=== PATIENT | female | born 1970 | race Caucasian/White ===

== ENCOUNTER 2017-01-04 10:16 | Emergency (ER) | payer OTHER ==
[2017-01-04 10:23] VITALS: BP 137/80; RESP 16; TEMP 98
[2017-01-04] MEDS ORDERED: IPRATROPIUM-ALBUTEROL 3 ML NEB INHALATION STA (10:39)
[2017-01-04] MEDS ORDERED: predniSONE 50 MG TAB PO STA (10:39)
--- NOTE | 2017-01-04 10:41 | ED ---
General Adult HPI - General Chief complaint: Shortness of Breath Stated complaint: asthma Time Seen by Provider: 01/04/17 10:20 Source: patient, RN notes reviewed Mode of arrival: ambulatory Limitations: no limitations - History of Present Illness Initial comments: This is a 46-year-old female who presents emergency Department with a past medical history significant for asthma. Patient states she woke up this morning with wheezing. Patient states she used her albuterol inhaler 2 and it really didn't help that much. Patient states she came to the emergency department because she wanted to catch the attack early so that wouldn't get worse. Patient denies any chest pain or palpitations. Patient denies any fever chills or cough. Patient denies any abdominal pain. Patient denies any upper respiratory like symptoms. Eyes any calf pain or leg swelling. - Related Data Previous Rx's Medication Instructions Recorded predniSONE 40 mg PO DAILY #8 tab 01/04/17 Allergies Allergy/AdvReac Type Severity Reaction Status Date / Time venom-honey bee Allergy Unknown Verified 01/04/17 10:31 [bee venom (honey bee)] codeine AdvReac Nausea & Verified 01/04/17 10:31 Vomiting & Diarrhea Review of Systems ROS Statement: Those systems with pertinent positive or pertinent negative responses have been documented in the HPI. ROS Other: All systems not noted in ROS Statement are negative. Past Medical History Past Medical History: Asthma History of Any Multi-Drug Resistant Organisms: None Reported Past Surgical History: Section, Hernia Repair Past Psychological History: No Psychological Hx Reported Smoking Status: Current every day smoker Past Alcohol Use History: None Reported Past Drug Use History: None Reported General Exam - General Exam Comments Initial Comments: GENERAL: Patient is well-developed and well-nourished. Patient is nontoxic and well- hydrated and is in mild distress. ENT: Neck is soft and supple. No significant lymphadenopathy is noted. Oropharynx is clear. Moist mucous membranes. Neck has full range of motion without eliciting any pain. EYES: The sclera were anicteric and conjunctiva were pink and moist. Extraocular movements were intact and pupils were equal round and reactive to light. Eyelids were unremarkable. PULMONARY: Slight expiratory wheeze CARDIOVASCULAR: There is a regular rate and rhythm without any murmurs gallops or rubs. ABDOMEN: Soft and nontender with normal bowel sounds. No palpable organomegaly was noted. There is no palpable pulsatile mass. SKIN: Skin is clear with no lesions or rashes and otherwise unremarkable. NEUROLOGIC: Patient is alert and oriented x3. Cranial nerves II through XII are grossly intact. Motor and sensory are also intact. Normal speech, volume and content. Symmetrical smile. MUSCULOSKELETAL: Normal extremities with adequate strength and full range of motion. No lower extremity swelling or edema. No calf tenderness. LYMPHATICS: No significant lymphadenopathy is noted PSYCHIATRIC: Normal psychiatric evaluation. Limitations: no limitations Course Vital Signs 01/04/17 01/04/17 01/04/17 10:21 10:56 11:03 Temperature 98.0 F Pulse Rate 80 88 88 Respiratory 16 Rate Blood Pressure 137/80 O2 Sat by Pulse 99 Oximetry Medical Decision Making - Medical Decision Making Patient received a breathing treatment one taken the room and I reevaluated the patient she sounded clearer and she felt a little better and she thought she could go home and follow-up with her primary as needed. Patient does states she 's been a try to quit smoking. Disposition Clinical Impression: Exacerbation of asthma Disposition: HOME SELF-CARE Condition: Good Instructions: Asthma (ED) Prescriptions: predniSONE 40 mg PO DAILY #8 tab Referrals: None,Stated [Primary Care Provider] - 1-2 days Time of Disposition: 11:21
[2017-01-04 11:35] VITALS: PULSE 82
== END 2017-01-04 11:35 | disposition home or self-care (01) ==
LOC: EC 10:16
DX: J45.901 Unspecified asthma with (acute) exacerbation (principal); F17.200 Nicotine dependence, unspecified, uncomplicated; Z91.030 Bee allergy status; Z88.5 Allergy status to narcotic agent
CPT/HCPCS: 99284; 94640; J7512

== ENCOUNTER 2017-04-09 13:51 | Emergency (ER) | payer OTHER ==
[2017-04-09 14:03] VITALS: BP 132/64; PULSE 91; RESP 20; TEMP 96.9
--- NOTE | 2017-04-09 14:23 | ED ---
General Adult HPI - General Chief complaint: Fall Stated complaint: fall/arm & shoulder pain Time Seen by Provider: 04/09/17 14:11 Source: patient, RN notes reviewed Mode of arrival: ambulatory Limitations: no limitations - History of Present Illness Initial comments: Patient 46-year-old female who presents emergency room today with a chief complaint of FALL on the ice yesterday when she was trying to get into the bus. She states that she was standing on the curb and when she went to step up slipped falling down hitting her knees bilaterally also noticed that she's had some pain to the right shoulder right elbow, right wrist today. Patient does admit that she's left-handed. She does admit that these pains are worse with certain movements. She states her head injury or loss conscious. Patient denies any other complaints or symptoms currently. Patient denies any recent fever, chills, shortness of breath, chest pain, back pain, abdominal pain, nausea or vomiting, numbness or tingling, headaches or visual changes, or any other complaints. - Related Data Home Medications Medication Instructions Recorded Confirmed No Known Home Medications [No 04/09/17 04/09/17 Known Home Medications] Allergies Allergy/AdvReac Type Severity Reaction Status Date / Time venom-honey bee Allergy Unknown Verified 04/09/17 14:03 [bee venom (honey bee)] codeine AdvReac Nausea & Verified 04/09/17 14:03 Vomiting & Diarrhea Review of Systems ROS Statement: Those systems with pertinent positive or pertinent negative responses have been documented in the HPI. ROS Other: All systems not noted in ROS Statement are negative. Past Medical History Past Medical History: Asthma History of Any Multi-Drug Resistant Organisms: None Reported Past Surgical History: Section, Hernia Repair Past Psychological History: No Psychological Hx Reported Smoking Status: Current every day smoker Past Alcohol Use History: None Reported Past Drug Use History: None Reported General Exam - General Exam Comments Initial Comments: General: The patient is awake and alert, in no distress, and does not appear acutely ill. Neck: The neck is supple, there is no tenderness or JVD. Cardiovascular: There is a regular rate and rhythm. No murmur, rub or gallop is appreciated. Respiratory: Lungs are clear to auscultation, respirations are non-labored, breath sounds are equal. No wheezes, stridor, rales, or rhonchi. Musculoskeletal: Patient does have normal appearance of her shoulder, right elbow, right wrist no swelling or deformity. Shows full range motional areas. Mild tenderness to the posterior aspect of the right elbow. Mild tenderness to the distal ulna. Mild tenderness to the superior anterior aspect of the right shoulder. Sensations are intact pulses equal bilateral 2+. strength is 5/5 in all areas. Neurological: A&O x 3. CN II-XII intact, There are no obvious motor or sensory deficits. Coordination appears grossly intact. Speech is normal. Skin: Skin is warm and dry and no rashes or lesions are noted. Psychiatric: Normal mood and affect. Limitations: no limitations Course Vital Signs 04/09/17 14:01 Temperature 96.9 F L Pulse Rate 91 Respiratory 20 Rate Blood Pressure 132/64 O2 Sat by Pulse 100 Oximetry Medical Decision Making - Medical Decision Making Patient's x-rays of the right shoulder, right wrist, right elbow are negative for any acute fracture dislocation. Results were discussed with the patient. Patient advised used Tylenol ibuprofen for pain. Patient advised follow-up in 7 -10 days if symptoms persist. Patient requests work note. We will give patient work note for today. Disposition Clinical Impression: Fall, Shoulder strain, Wrist sprain, Strain of elbow Disposition: HOME SELF-CARE Condition: Good Instructions: Muscle Strain (ED) Additional Instructions: Please use medication as discussed. Please follow-up with orthopedic/family doctor in the next 7-10 days of symptoms have not improved. Please return to emergency room if the symptoms increase or worsen or for any other concerns. Referrals: None,Stated [Primary Care Provider] - 1-2 days Demetrio Grace MD [STAFF PHYSICIAN] - 1-2 days Lamberto Farmer DO [Doctor of Osteopathic Medicine] - 1-2 days Time of Disposition: 15:06
--- NOTE | 2017-04-09 15:00 | XR ---
EXAMINATION TYPE: XR shoulder complete RT DATE OF EXAM: 04/09/2017 CLINICAL HISTORY: Pain from fall injury yesterday. TECHNIQUE: Three views of the right shoulder are obtained. COMPARISON: None. FINDINGS: There is no acute fracture/dislocation evident in the right shoulder. The acromioclavicul ar and glenohumeral joint spaces appear within normal limits. The visualized ribs are intact and unr emarkable. IMPRESSION: There is no acute fracture or dislocation in the right shoulder.
--- NOTE | 2017-04-09 15:01 | XR ---
EXAMINATION TYPE: XR elbow limited RT DATE OF EXAM: 04/09/2017 CLINICAL HISTORY: Pain from fall injury yesterday. TECHNIQUE: Frontal and lateral images of the right elbow are obtained. COMPARISON: None FINDINGS: There is no acute fracture/dislocation evident in the right elbow. No abnormal fat pad si gns are seen. The overlying soft tissue appears unremarkable. IMPRESSION: There is no acute fracture or dislocation in the right elbow.
--- NOTE | 2017-04-09 15:02 | XR ---
EXAMINATION TYPE: XR wrist complete RT DATE OF EXAM: 04/09/2017 CLINICAL HISTORY: Pain from fall injury. TECHNIQUE: Frontal, lateral , scaphoid, and oblique images of the right wrist are obtained. COMPARISON: None FINDINGS: There is no acute fracture/dislocation evident in the right wrist. Subchondral cystic khan ge distal radii aspect of scaphoid and adjacent radial base of the trapezium is felt present. The ov erlying soft tissue appears unremarkable. IMPRESSION: There is no acute fracture or dislocation in the right wrist.
== END 2017-04-09 15:28 | disposition home or self-care (01) ==
LOC: EC 13:51
DX: S63.501A Unspecified sprain of right wrist, initial encounter (principal); S46.911A Strain of unspecified muscle, fascia and tendon at shoulder and upper arm level, right arm, initial encounter; F17.200 Nicotine dependence, unspecified, uncomplicated; Z91.030 Bee allergy status; Z88.5 Allergy status to narcotic agent; W00.9XXA Unspecified fall due to ice and snow, initial encounter; Y93.89 Activity, other specified
CPT/HCPCS: 99283

== ENCOUNTER 2018-08-08 12:02 | Observation (INO) | payer OTHER ==
[2018-08-08] MEDS ORDERED: SODIUM CHLORIDE 0.9% 1,000 ML IV STA (12:34)
[2018-08-08] MEDS ORDERED: ONDANSETRON 4 MG/2 ML VIAL IVP STA (12:34)
[2018-08-08] MEDS ORDERED: FAMOTIDINE 20 MG/2 ML VIAL IV STA (12:35)
[2018-08-08] MEDS ORDERED: MAG HYDROX/AL HYDROX/SIMETH 30 ML, HYOSCYAMINE ELIXIR 10 ML, CIMETIDINE HCL 300 MG, LID... PO STA ×4 (12:35)
[2018-08-08 13:05] LABS: Basophils % (A) 0 %; Eosinophils # (A) 0.2 k/uL (0-0.7); Eosinophils % (A) 2 %; HCT 41.1 % (34.0-46.0); HGB 13.3 gm/dL (11.4-16.0); Lymphocytes # (A) 1.4 k/uL (1.0-4.8); Lymphocytes % (A) 20 %; MCH 26.6 pg (25.0-35.0); MCHC 32.3 g/dL (31.0-37.0); MCV 82.2 fL (80.0-100.0); Mean Platelet Volume 10.3; Monocytes # (A) 0.5 k/uL (0-1.0); Monocytes % (A) 7 %; Neutrophils % (A) 69 %; Platelet Count 206 k/uL (150-450); WBC 7.2 k/uL (3.8-10.6)
[2018-08-08 13:14] LABS: ALT 64 U/L (9-52); AST 78 U/L (14-36); African American GFR (CKD) >90 (>60 ml/min/1.73 sqM); Albumin 4.2 g/dL (3.5-5.0); Alkaline Phosphatase 92 U/L (38-126); Anion Gap 8 mmol/L; Blood Urea Nitrogen 7 mg/dL (7-17); Calcium 9.4 mg/dL (8.4-10.2); Carbon Dioxide 24 mmol/L (22-30); Chloride 108 mmol/L (98-107); Glucose 100 mg/dL (74-99); Sodium 140 mmol/L (137-145); Total Bilirubin 0.6 mg/dL (0.2-1.3); Total Protein 7.6 g/dL (6.3-8.2)
[2018-08-08 13:28] LABS: Appearance,Urine Cloudy (Clear); Bilirubin,Urine Negative (Negative); Blood,Urine Moderate (Negative); Color,Urine Yellow; Glucose,Urine (UA) Negative (Negative); Ketones,Urine Negative (Negative); Leukocyte Esterase,Urine Negative (Negative); Mucus,Urine Few /hpf; Nitrite,Urine Negative (Negative); PH, Urine 5.5 (5.0-8.0); Protein,Urine Trace (Negative); RBC,Urine 2 /hpf (0-5); Specific Gravity,Urine 1.026 (1.001-1.035); Squamous Epithelial Cell,Urine 5 /hpf (0-4); Urobilinogen,Urine <2.0 mg/dL (<2.0); WBC,Urine 4 /hpf (0-5)
--- NOTE | 2018-08-08 13:42 | US ---
EXAMINATION TYPE: US abdomen limited DATE OF EXAM: 08/08/2018 COMPARISON: NONE CLINICAL HISTORY: Pain. Pain, Nausea EXAM MEASUREMENTS: Liver Length: 15.9 cm Gallbladder Wall: 0.7 cm CBD: 0.5 cm Right Kidney: 11.0 x 4.0 x 4.5 cm Pancreas: 0.21 mm duct visualized, tail obscured by overlying bowel gas Liver: Visualized portions appeared wnl Gallbladder: Non-mobile stone within neck, tumefactive sludge and stones near fundus Evidence for sonographic Lynch's sign: Yes CBD: wnl Right Kidney: wnl, lower pole gassed out IMPRESSION: Large nonmobile gallstone is seen within the gallbladder neck in addition to tumefactive sludge, positive sonographic Lynch sign and gallbladder wall thickening however the common bile duct is not dilated at this time. Sonographic findings are equivocal for acute cholecystitis given the ab ove findings. Surgical consultation and correlation with laboratory values is recommended.
--- NOTE | 2018-08-08 13:45 | ED ---
Abdominal Pain HPI - General Source: patient, RN notes reviewed Mode of arrival: ambulatory Limitations: no limitations <Lamberto Whitney - Last Filed: 08/08/18 15:27> <Roosevelt Hung - Last Filed: 08/08/18 15:31> - General Chief Complaint: Abdominal Pain Stated Complaint: ABDOMINAL PAIN Time Seen by Provider: 08/08/18 12:22 - History of Present Illness Initial Comments: This a 47-year-old female presents emergency Department with chief complaint of abdominal pain. Patient states started last night worsened after taking some Motrin. Patient states it's in her epigastric region nonradiating. Patient has no vomiting no diarrhea no constipation. She has no dysuria no hematuria. Patient states that nothing really makes the pain feel better. Patient denies any fevers or chills no chest pain or shortness of breath. Patient denies any melena or hematochezia. Patient states that she's had prior section and hernia repair (Lamberto Whitney) - Related Data Home Medications Medication Instructions Recorded Confirmed No Known Home Medications 04/09/17 04/09/17 Allergies Allergy/AdvReac Type Severity Reaction Status Date / Time venom-honey bee Allergy Unknown Verified 08/08/18 12:20 [bee venom (honey bee)] codeine AdvReac Nausea & Verified 08/08/18 12:20 Vomiting & Diarrhea Review of Systems ROS Other: All systems not noted in ROS Statement are negative. <Lamberto Whitney - Last Filed: 08/08/18 15:27> ROS Other: All systems not noted in ROS Statement are negative. <Roosevelt Hung - Last Filed: 08/08/18 15:31> ROS Statement: Those systems with pertinent positive or pertinent negative responses have been documented in the HPI. Past Medical History Past Medical History: Asthma History of Any Multi-Drug Resistant Organisms: None Reported Past Surgical History: Section, Hernia Repair Past Psychological History: No Psychological Hx Reported Smoking Status: Current every day smoker Past Alcohol Use History: None Reported Past Drug Use History: None Reported <Lamberto Whitney - Last Filed: 08/08/18 15:27> General Exam Limitations: no limitations General appearance: alert, in no apparent distress Head exam: Present: atraumatic, normocephalic, normal inspection Eye exam: Present: normal appearance, PERRL, EOMI. Absent: scleral icterus, conjunctival injection, periorbital swelling Respiratory exam: Present: normal lung sounds bilaterally. Absent: respiratory distress, wheezes, rales, rhonchi, stridor Cardiovascular Exam: Present: regular rate, normal rhythm, normal heart sounds. Absent: systolic murmur, diastolic murmur, rubs, gallop, clicks GI/Abdominal exam: Present: soft, tenderness (Mild to moderate epigastric), normal bowel sounds. Absent: distended, guarding, rebound, rigid Back exam: Absent: CVA tenderness (R), CVA tenderness (L) Neurological exam: Present: alert, oriented X3, CN II-XII intact Skin exam: Present: warm, dry, intact, normal color. Absent: rash <Lamberto Whitney - Last Filed: 08/08/18 15:27> Course <Roosevelt Hung - Last Filed: 08/08/18 15:31> Vital Signs 08/08/18 08/08/18 08/08/18 12:18 13:51 14:23 Temperature 98.6 F Pulse Rate 101 H 74 88 Respiratory 20 18 18 Rate Blood Pressure 144/93 118/73 133/66 O2 Sat by Pulse 97 100 100 Oximetry - Reevaluation(s) Reevaluation #2: 08/08/18 15:30 PA supervision: I proceeded [id number] evaluation the patient right upper quadrant pain since yesterday. She does demonstrate a Lynch sign on evaluation. Ultrasound shows evidence of an impacted stone in the neck of the gallbladder. She does have) Lynch sign with thickened gallbladder wall. Common bile duct is appear to be normal I did discuss case with Dr. Sow patient will be admitted for inpatient treatment. I do agree with the assessment and plan (Roosevelt Hung) Medical Decision Making - Lab Data Result diagrams: 08/08/18 12:56 08/08/18 12:56 <Lamberto Whitney - Last Filed: 08/08/18 15:27> - Lab Data Result diagrams: 08/08/18 12:56 08/08/18 12:56 <Roosevelt Hung - Last Filed: 08/08/18 15:31> - Medical Decision Making 47-year-old female presented for abdominal pain. Patient's found to have multiple gallstone, gallbladder wall thickening concern for acute cholecystitis. Patient will be admitted for pain control, possible surgery. (Lamberto Whitney) - Lab Data Lab Results 08/08/18 08/08/18 08/08/18 Range/Units 12:56 12:56 12:56 WBC 7.2 (3.8-10.6) k/uL RBC 5.00 (3.80-5.40) m/uL Hgb 13.3 (11.4-16.0) gm/dL Hct 41.1 (34.0-46.0) % MCV 82.2 (80.0-100.0) fL MCH 26.6 (25.0-35.0) pg MCHC 32.3 (31.0-37.0) g/dL RDW 14.0 (11.5-15.5) % Plt Count 206 (150-450) k/uL Neutrophils % 69 % Lymphocytes % 20 % Monocytes % 7 % Eosinophils % 2 % Basophils % 0 % Neutrophils # 5.0 (1.3-7.7) k/uL Lymphocytes # 1.4 (1.0-4.8) k/uL Monocytes # 0.5 (0-1.0) k/uL Eosinophils # 0.2 (0-0.7) k/uL Basophils # 0.0 (0-0.2) k/uL Sodium 140 (137-145) mmol/L Potassium 4.0 (3.5-5.1) mmol/L Chloride 108 H (98-107) mmol/L Carbon Dioxide 24 (22-30) mmol/L Anion Gap 8 mmol/L BUN 7 (7-17) mg/dL Creatinine 0.63 (0.52-1.04) mg/dL Est GFR (CKD-EPI)AfAm >90 (>60 ml/min/1.73 sqM) Est GFR (CKD-EPI)NonAf >90 (>60 ml/min/1.73 sqM) Glucose 100 H (74-99) mg/dL Calcium 9.4 (8.4-10.2) mg/dL Total Bilirubin 0.6 (0.2-1.3) mg/dL AST 78 H (14-36) U/L ALT 64 H (9-52) U/L Alkaline Phosphatase 92 (38-126) U/L Total Protein 7.6 (6.3-8.2) g/dL Albumin 4.2 (3.5-5.0) g/dL Lipase 105 (23-300) U/L Urine Color Yellow Urine Appearance Cloudy H (Clear) Urine pH 5.5 (5.0-8.0) Ur Specific [place] 1.026 (1.001-1.035) Urine Protein Trace H (Negative) Urine Glucose (UA) Negative (Negative) Urine Ketones Negative (Negative) Urine Blood Moderate H (Negative) Urine Nitrite Negative (Negative) Urine Bilirubin Negative (Negative) Urine Urobilinogen <2.0 (<2.0) mg/dL Ur Leukocyte Esterase Negative (Negative) Urine RBC 2 (0-5) /hpf Urine WBC 4 (0-5) /hpf Ur Squamous Epith Cells 5 H (0-4) /hpf Urine Mucus Few H (None) /hpf Urine HCG, Qual (Not Detectd) 08/08/18 Range/Units 12:56 WBC (3.8-10.6) k/uL RBC (3.80-5.40) m/uL Hgb (11.4-16.0) gm/dL Hct (34.0-46.0) % MCV (80.0-100.0) fL MCH (25.0-35.0) pg MCHC (31.0-37.0) g/dL RDW (11.5-15.5) % Plt Count (150-450) k/uL Neutrophils % % Lymphocytes % % Monocytes % % Eosinophils % % Basophils % % Neutrophils # (1.3-7.7) k/uL Lymphocytes # (1.0-4.8) k/uL Monocytes # (0-1.0) k/uL Eosinophils # (0-0.7) k/uL Basophils # (0-0.2) k/uL Sodium (137-145) mmol/L Potassium (3.5-5.1) mmol/L Chloride (98-107) mmol/L Carbon Dioxide (22-30) mmol/L Anion Gap mmol/L BUN (7-17) mg/dL Creatinine (0.52-1.04) mg/dL Est GFR (CKD-EPI)AfAm (>60 ml/min/1.73 sqM) Est GFR (CKD-EPI)NonAf (>60 ml/min/1.73 sqM) Glucose (74-99) mg/dL Calcium (8.4-10.2) mg/dL Total Bilirubin (0.2-1.3) mg/dL AST (14-36) U/L ALT (9-52) U/L Alkaline Phosphatase (38-126) U/L Total Protein (6.3-8.2) g/dL Albumin (3.5-5.0) g/dL Lipase (23-300) U/L Urine Color Urine Appearance (Clear) Urine pH (5.0-8.0) Ur Specific [place] (1.001-1.035) Urine Protein (Negative) Urine Glucose (UA) (Negative) Urine Ketones (Negative) Urine Blood (Negative) Urine Nitrite (Negative) Urine Bilirubin (Negative) Urine Urobilinogen (<2.0) mg/dL Ur Leukocyte Esterase (Negative) Urine RBC (0-5) /hpf Urine WBC (0-5) /hpf Ur Squamous Epith Cells (0-4) /hpf Urine Mucus (None) /hpf Urine HCG, Qual Not Detected (Not Detectd) Disposition <Lamberto Whitney - Last Filed: 08/08/18 15:27> <Roosevelt Hung - Last Filed: 08/08/18 15:31> Clinical Impression: Cholelithiasis, Acute cholecystitis Disposition: ADMITTED IP TO THIS [facility] Condition: Fair Referrals: None,Stated [Primary Care Provider] - 1-2 days
[2018-08-08] MEDS ORDERED: HYDROmorphone 0.5 MG/0.5 ML SYRINGE IVP STA (14:10)
[2018-08-08] MEDS ORDERED: ONDANSETRON 4 MG/2 ML VIAL IVP PRN (15:11)
[2018-08-08] MEDS ORDERED: HYDROmorphone 1 MG/ML 1 ML SYRINGE IVP PRN (15:11)
[2018-08-08] MEDS ORDERED: PIPERACILLIN-TAZOBACTAM 3.375 GM in SODIUM CHLORIDE 0.9% 100 ML IVPB STA (15:27)
[2018-08-08] MEDS: SODIUM CHLORIDE 0.9% 1,000 ML IV SCH (15:37)
[2018-08-08] MEDS: HYDROmorphone 0.5 MG/0.5 ML SYRINGE IVP PRN (15:38)
[2018-08-08 16:32] VITALS: BMI 43.8
[2018-08-08] MEDS ORDERED: METOCLOPRAMIDE 5 MG/ML 2 ML VIAL IVP STA (17:43)
[2018-08-08] MEDS ORDERED: ACETAMINOPHEN IV (For NPO) 1,000 MG in EMPTY BAG 1 BAG IVPB PRN (19:16)
[2018-08-08] MEDS ORDERED: METOCLOPRAMIDE 5 MG/ML 2 ML VIAL IVP PRN (19:18)
[2018-08-08] MEDS: KETOROLAC 30 MG/ML 1 ML VIAL IVP SCH ×2 (19:29→23:58)
--- NOTE | 2018-08-08 23:33 | P.GSHP ---
History of Present Illness H&P Date: 08/08/18 Chief Complaint: Abdominal pain The patient is a 47 year old lady who began having abdominal pain last night. She tried to take motrin and ride the pain out. It became progressively worse so she came to the ED. Workup is suggestive of acute cholecystitis. No prior episodes. No history of fatty food dyscrasia. Denies fever, chills, jaundice, tea colored urine or acholic stool. She has had nausea and vomiting. THis was after getting IV pain medication. - Review of Systems All systems: negative Past Medical History Past Medical History: Asthma History of Any Multi-Drug Resistant Organisms: None Reported Past Surgical History: Section, Hernia Repair Past Psychological History: No Psychological Hx Reported Smoking Status: Current every day smoker Past Alcohol Use History: None Reported Past Drug Use History: None Reported - Past Family History Father Family Medical History: No Reported History Mother Family Medical History: No Reported History Medications and Allergies Home Medications Medication Instructions Recorded Confirmed Type Ibuprofen [Motrin] 800 mg PO TID PRN 08/08/18 08/08/18 History Allergies Allergy/AdvReac Type Severity Reaction Status Date / Time venom-honey bee Allergy Unknown Verified 08/08/18 16:05 [bee venom (honey bee)] codeine AdvReac Nausea & Verified 08/08/18 16:05 Vomiting & Diarrhea Surgical - Exam Osteopathic Statement: *. No significant issues noted on an osteopathic structural exam other than those noted in the History and Physical/Consult. Vital Signs Temp Pulse Resp BP Pulse Ox 98.6 F 101 H 20 144/93 97 08/08/18 12:18 08/08/18 12:18 08/08/18 12:18 08/08/18 12:18 08/08/18 12:18 - General mild distress well developed, well nourished - Eyes normal ocular movement - ENT normal mucosa - Neck trachea midline, no lymphadectomy - Respiratory normal respiratory effort, clear to auscultation - Cardiovascular Rhythm: regular - Abdomen Abdomen: soft, tender (epigastric and RUQ tenderness), surgical scars - Psychiatric oriented to time, oriented to person, oriented to place, speech is normal, memory intact Results - Labs 08/08/18 12:56 08/08/18 12:56 Abnormal Lab Results - Last 24 Hours (Table) 08/08/18 08/08/18 Range/Units 12:56 12:56 Chloride 108 H (98-107) mmol/L Glucose 100 H (74-99) mg/dL AST 78 H (14-36) U/L ALT 64 H (9-52) U/L Urine Appearance Cloudy H (Clear) Urine Protein Trace H (Negative) Urine Blood Moderate H (Negative) Ur Squamous Epith Cells 5 H (0-4) /hpf Urine Mucus Few H (None) /hpf Diabetes panel 08/08/18 Range/Units 12:56 Sodium 140 (137-145) mmol/L Potassium 4.0 (3.5-5.1) mmol/L Chloride 108 H (98-107) mmol/L Carbon Dioxide 24 (22-30) mmol/L BUN 7 (7-17) mg/dL Creatinine 0.63 (0.52-1.04) mg/dL Glucose 100 H (74-99) mg/dL Calcium 9.4 (8.4-10.2) mg/dL AST 78 H (14-36) U/L ALT 64 H (9-52) U/L Alkaline Phosphatase 92 (38-126) U/L Total Protein 7.6 (6.3-8.2) g/dL Albumin 4.2 (3.5-5.0) g/dL Calcium panel 08/08/18 Range/Units 12:56 Calcium 9.4 (8.4-10.2) mg/dL Albumin 4.2 (3.5-5.0) g/dL Pituitary panel 08/08/18 Range/Units 12:56 Sodium 140 (137-145) mmol/L Potassium 4.0 (3.5-5.1) mmol/L Chloride 108 H (98-107) mmol/L Carbon Dioxide 24 (22-30) mmol/L BUN 7 (7-17) mg/dL Creatinine 0.63 (0.52-1.04) mg/dL Glucose 100 H (74-99) mg/dL Calcium 9.4 (8.4-10.2) mg/dL Adrenal panel 08/08/18 Range/Units 12:56 Sodium 140 (137-145) mmol/L Potassium 4.0 (3.5-5.1) mmol/L Chloride 108 H (98-107) mmol/L Carbon Dioxide 24 (22-30) mmol/L BUN 7 (7-17) mg/dL Creatinine 0.63 (0.52-1.04) mg/dL Glucose 100 H (74-99) mg/dL Calcium 9.4 (8.4-10.2) mg/dL Total Bilirubin 0.6 (0.2-1.3) mg/dL AST 78 H (14-36) U/L ALT 64 H (9-52) U/L Alkaline Phosphatase 92 (38-126) U/L Total Protein 7.6 (6.3-8.2) g/dL Albumin 4.2 (3.5-5.0) g/dL - Imaging US - abdomen: report reviewed Assessment and Plan (1) Acute cholecystitis Current Visit: Yes Status: Acute Code(s): K81.0 - ACUTE CHOLECYSTITIS SNOMED Code(s): 16177347 (2) Cholelithiasis Current Visit: Yes Status: Acute Code(s): K80.20 - CALCULUS OF GALLBLADDER W/O CHOLECYSTITIS W/O OBSTRUCTION SNOMED Code(s): 192019230 Plan: Admit. Control pain and nausea. DVT and ulcer prophylaxis. IV antibiotics. To the OR for laparoscopic cholecystectomy, possible open. THe procedure, risks and complications. Usual postoperative course was discussed. Questions were encouraged and answered.
[2018-08-08] MEDS: PIPERACILLIN-TAZOBACTAM 3.375 GM in SODIUM CHLORIDE 0.9% 100 ML IVPB SCH (23:58)
[2018-08-09] MEDS: HYDROmorphone 0.5 MG/0.5 ML SYRINGE IVP PRN ×2 (03:36→07:05)
[2018-08-09] MEDS: SODIUM CHLORIDE 0.9% 1,000 ML IV SCH ×2 (03:56→16:33)
[2018-08-09] MEDS: KETOROLAC 30 MG/ML 1 ML VIAL IVP SCH ×3 (06:15→18:08)
[2018-08-09] MEDS: PIPERACILLIN-TAZOBACTAM 3.375 GM in SODIUM CHLORIDE 0.9% 100 ML IVPB SCH ×2 (08:18→16:33)
--- NOTE | 2018-08-09 08:59 | P.PN ---
Progress Note - Text Progress Note Date: 08/09/18 Patient is questions were answered. We'll proceed to the OR today.
[2018-08-09] MEDS ORDERED: PANTOPRAZOLE 40 MG/10 ML VIAL IVP SCH (09:00)
[2018-08-09] MEDS ORDERED: GLYCOPYRROLATE 0.2 MG/ML 2 ML VIAL ONE (09:19)
[2018-08-09] MEDS ORDERED: ONDANSETRON 4 MG/2 ML VIAL ONE (09:19)
[2018-08-09] MEDS ORDERED: SUCCINYLCHOLINE CHLORIDE 100 MG/5 ML SYR IV ONE (09:19)
[2018-08-09] MEDS ORDERED: fentaNYL (PF) 50 MCG/ML 2 ML AMP ONE (09:19)
[2018-08-09] MEDS ORDERED: NEOSTIGMINE 1 MG/ML 10 ML VIAL ONE (09:19)
[2018-08-09] MEDS ORDERED: MIDAZOLAM 2 MG/2 ML VIAL ONE (09:19)
[2018-08-09] MEDS ORDERED: DEXAMETHASONE SOD PHOS (MDV) 100 MG/10 ML VIAL ONE (09:19)
[2018-08-09] MEDS ORDERED: PROPOFOL 10 MG/ML 20 ML VIAL IV ONE (09:19)
[2018-08-09] MEDS ORDERED: LIDOCAINE 1% INJ 10MG/ML (20 ML MDV) ONE (09:19)
[2018-08-09] MEDS ORDERED: ROCURONIUM BROMIDE 10 MG/ML 10 ML VIAL IV ONE (09:19)
[2018-08-09] MEDS ORDERED: SODIUM CHLORIDE 0.9% 1,000 ML IV ONE (09:25)
[2018-08-09] MEDS ORDERED: BUPIVACAIN-EPI 0.25%-1:200,000 30 ML VIAL SQ ONE (09:25)
[2018-08-09] MEDS ORDERED: LACTATED RINGERS 1,000 ML IV ONE (10:43)
[2018-08-09] MEDS ORDERED: HYDROcodone/APAP 5-325MG 1 EACH TAB PO PRN (10:54)
[2018-08-09] MEDS ORDERED: NALOXONE 0.4 MG/ML 1 ML VIAL IV PRN (10:54)
--- NOTE | 2018-08-09 10:54 | P.OP ---
Date of Procedure: 08/09/18 Preoperative Diagnosis: Cholelithiasis, acute cholecystitis Postoperative Diagnosis: Cholelithiasis, acute cholecystitis Procedure(s) Performed: Laparoscopic cholecystectomy Anesthesia: AMPARO Surgeon: Yudith Sow Estimated Blood Loss (ml): 25 Pathology: other (Gallbladder) Condition: stable Disposition: PACU Indications for Procedure: The patient presented with acute cholecystitis from a gallstone impacted into the Eduardo's pouch Description of Procedure: The patient's taken the operative suite where she is prepped and draped in the usual sterile manner under a general endotracheal anesthetic. She had had a previous umbilical hernia repair with mesh. An incision was made above the umbilicus. An optical trocar was placed into the abdominal cavity under visualization. Pneumoperitoneum was established with CO2 gas. Sites are chosen for accessory trochars and these are placed through small skin incisions. There are some adhesions of the omentum in the lower abdomen to the hernia mesh otherwise the liver, diaphragm, large and small bowel were normal where they were seen. The gallbladder was very edematous and enlarged. It was decompressed of about 80 mL's of dark brown bile. There were multiple stones noted. The gallbladder is then retracted towards the anterior abdominal wall. Eduardo's pouch is identified. There is a stone impacted there that is milked back into the gallbladder. Eduardo's pouch is then grasped and the cystic duct and cystic artery are dissected free. They're triply clipped and cut. The cystic duct stump is further secured with 0 PDS Endoloop. The gallbladder is then dissected free from the liver bed. Small bleeding points were controlled with electrocautery. The gallbladder is placed into a specimen retrieval bag. The skin and fascia had to be extended at the umbilicus to allow for removal of the gallbladder. Due to the numerous stones, gallbladder was opened and these were removed with a ring forcep. There was 1 larger stone approximately 3 cm in size which was crushed with the ring forceps. The liver bed is reexamined and noted be hemostatic. The excess irrigant was suctioned out. The pneumoperitoneum was released. The trochars were removed. The fascia at the umbilicus was closed with interrupted [id number] sutures of 0 Vicryl. The skin was closed with 4-0 Vicryl in a subcuticular manner. Steri-Strips and dressings were applied. She tolerated the procedure without difficulty and was taken recovery room in satisfactory condition. According to or personnel, all counts were correct.
[2018-08-09] MEDS ORDERED: traMADol 50 MG TAB PO PRN (10:55)
[2018-08-09 12:21] VITALS: RESP 18; TEMP 98.1
[2018-08-09 17:08] VITALS: BP 109/59; PULSE 95
--- NOTE | 2018-08-09 18:11 | P.DS ---
Providers Date of admission: 08/09/18 12:03 Expected date of discharge: 08/09/18 Attending physician: Yudith Sow Primary care physician: Stated None - Discharge Diagnosis(es) (1) Acute cholecystitis Current Visit: Yes Status: Acute (2) Cholelithiasis Current Visit: Yes Status: Acute Hospital Course: The patient presented with acute abdominal pain. Workup showed acute cholecystitis from a gallstone impacted in hartmans pouch.She was given antibiotics along with DVT and ulcer prophylaxis. Given pain control and antibiotics. She was taken to the OR where she underwent laparoscopic cholecystectomy. She was monitored postoperatively and was doing very well. She was tolerating a diet and having minimal pain. [place] to be stable for discharge. Procedures: Laparoscopic cholecystectomy Patient Condition at Discharge: Good Plan - Discharge Summary New Discharge Prescriptions: New HYDROcodone/APAP 5-325MG [[place] 5-325] 1 - 2 tab PO Q4H PRN #15 tab PRN Reason: Pain No Action Ibuprofen [Motrin] 800 mg PO TID PRN PRN Reason: Pain Discharge Medication List Ibuprofen [Motrin] 800 mg PO TID PRN 08/08/18 [History] HYDROcodone/APAP 5-325MG [[place] 5-325] 1 - 2 tab PO Q4H PRN #15 tab 08/09/18 [Rx] Follow up Appointment(s)/Referral(s): Yudith Sow DO [Doctor of Osteopathic Medicine] - 2 Weeks Activity/Diet/Wound Care/Special Instructions: Ice to the incisions for 24-48 hours. Keep the incisions covered and dry until Saturday, then you may shower. Motrin or tylenol are OK to take instead of pain pills. Call if fever, chills, nausea or vomiting, increase in pain or wound concerns
== END 2018-08-09 18:30 | disposition home or self-care (01) ==
LOC: EC 12:02 → 6PED 15:29 → OBSVTOIN 08-09 12:03 → INTOOBSV 08-09 12:03 → 6PED 08-09 12:14
PROVIDERS: ADMIT Surgery; ATTEND Surgery
PROC: 0FT44ZZ Resection of Gallbladder, Percutaneous Endoscopic Approach (ICD-10-PCS; principal; 2018-08-09 09:00)
DX: K80.00 Calculus of gallbladder with acute cholecystitis without obstruction (principal); F17.210 Nicotine dependence, cigarettes, uncomplicated; Z88.5 Allergy status to narcotic agent; Z91.030 Bee allergy status; Z98.891 History of uterine scar from previous surgery; Z98.890 Other specified postprocedural states
CPT/HCPCS: 47562; 96375 ×2; 96376; 96361; 96374; 99285; 36415; 88304; 80053; 83690; 85025; 81001; 81025; 76705; G0378 ×2; J2543 ×2; J2250; J2710; J2765; J2405 ×2; J2001; J3010; J1885 ×2; J1100; J0131; J0330; J2704; J1170 ×2

== ENCOUNTER → 2019-02-13 | Outpatient (CLI) | payer OTHER ==
--- NOTE | 2019-02-13 13:09 | US ---
EXAMINATION TYPE: US venous doppler duplex LE RT DATE OF EXAM: 02/13/2019 12:18 PM COMPARISON: NONE CLINICAL HISTORY: RT M79.661 Pain in rt lower limb. Pt states localized swelling right leg x 2 yrs. SIDE PERFORMED: Right TECHNIQUE: The lower extremity deep venous system is examined utilizing real time linear array sonog matilda with graded compression, doppler sonography and color-flow sonography. VESSELS IMAGED: External Iliac Vein (EIV) Common Femoral Vein Deep Femoral Vein Greater Saphenous Vein * Femoral Vein Popliteal Vein Small Saphenous Vein * Proximal Calf Veins (* superficial vessels) Right Leg: Negative for DVT IMPRESSION: 1. Right lower extremity ultrasound negative for deep venous thrombosis.
== END ==
LOC: RADUSWWP 11:56
PROVIDERS: ATTEND Family Medicine
DX: M79.661 Pain in right lower leg (principal); R22.41 Localized swelling, mass and lump, right lower limb

== ENCOUNTER → 2019-03-11 | Outpatient (CLI) | payer OTHER | END | disposition home or self-care (01) | LOC: LABWHC1 09:39 | PROVIDERS: ATTEND Nurse Practitioner Family | DX: R94.6 Abnormal results of thyroid function studies (principal) | CPT/HCPCS: 36415; 84439; 84443; 84481; 86376; 86800 ==

== ENCOUNTER → 2020-07-27 | Outpatient (CLI) | payer OTHER ==
--- NOTE | 2020-07-27 16:10 | US ---
EXAMINATION TYPE: US venous doppler duplex LE RT DATE OF EXAM: 07/27/2020 4:01 PM COMPARISON: US 02/13/2019 CLINICAL HISTORY: RLE R25.2 Cramping M25.471 Swelling ankle,M79.661. SIDE PERFORMED: Right TECHNIQUE: The lower extremity deep venous system is examined utilizing real time linear array sonog matilda with graded compression, doppler sonography and color-flow sonography. VESSELS IMAGED: Common Femoral Vein Deep Femoral Vein Greater Saphenous Vein * Femoral Vein Popliteal Vein Small Saphenous Vein * Proximal Calf Veins (* superficial vessels) Right Leg: Negative for DVT IMPRESSION: 1. No evidence of deep venous thrombosis of the right lower extremity veins.
== END | disposition home or self-care (01) ==
LOC: RADUSWWP 15:44
PROVIDERS: ATTEND Family Medicine
DX: M25.471 Effusion, right ankle (principal)

== ENCOUNTER → 2020-08-15 | Outpatient (CLI) | payer OTHER ==
--- NOTE | 2020-08-15 11:15 | US ---
EXAMINATION TYPE: US transvaginal DATE OF EXAM: 08/15/2020 COMPARISON: NONE CLINICAL HISTORY: N94.6 Dysmenorrhea, unspecified. Abnormal menses exam limited due to body habitus TECHNIQUE: Transvaginal (TV). EXAM MEASUREMENTS: Uterus: 13.7 x 7.9 x 6.1 cm Endometrial Stripe: 1.4 cm 1. Uterus: Anteverted limited due to body habitus 2. Endometrium: limited 3. Right Ovary: Obscured by overlying bowel gas 4. Left Ovary: Obscured by overlying bowel gas 5. Bilateral Adnexa: wnl 6. Posterior cul-de-sac: wnl IMPRESSION: No definite sonographic abnormality on this limited examination.
== END | disposition home or self-care (01) ==
LOC: RADUSWWP 09:44
PROVIDERS: ATTEND Family Medicine
DX: N94.6 Dysmenorrhea, unspecified (principal)
CPT/HCPCS: 76830

== ENCOUNTER → 2020-11-09 | Outpatient (CLI) | payer OTHER ==
--- NOTE | 2020-11-09 18:45 | XR ---
EXAMINATION TYPE: XR knee 4V bilateral DATE OF EXAM: 11/09/2020 COMPARISON: Right knee 09/18/2014 HISTORY: Knee pain TECHNIQUE: 4 views each knee FINDINGS: There is spurring of the medial femoral and tibial condyles. I see no fracture nor dislocat ion. There is slight narrowing of the medial joint spaces of both knees. There is no sign of joint ef fusion. I see no bony destructive process. IMPRESSION: Mild osteoarthritis. There is progression of the spurring in the right knee compared to o ld exam.
== END | disposition home or self-care (01) ==
LOC: RADXRMAIN 18:01
PROVIDERS: ATTEND Family Medicine
DX: M17.0 Bilateral primary osteoarthritis of knee (principal)

== ENCOUNTER 2021-02-05 09:29 | Emergency (ER) | payer OTHER ==
[2021-02-05] MEDS ORDERED: SODIUM CHLORIDE 0.9% 1,000 ML IV STA (09:54)
[2021-02-05] MEDS ORDERED: PANTOPRAZOLE 40 MG/10 ML VIAL IVP STA (09:54)
--- NOTE | 2021-02-05 09:57 | ED ---
General Adult HPI - General Chief complaint: Abdominal Pain Stated complaint: abd pain Time Seen by Provider: 02/05/21 09:41 Source: patient, RN notes reviewed Mode of arrival: ambulatory Limitations: no limitations - History of Present Illness Initial comments: Patient is a pleasant 50-year-old female presenting to the emergency department with complaints of abdominal discomfort. Onset of symptoms was yesterday afternoon/evening. Discomfort is proximally 7/10. Discomfort feels like burning. No radiation. Patient does have history of previous stomach ulcer. No nausea vomiting however patient does have decreased appetite. Patient did eat some food last night with no change of symptoms. No constipation or diarrhea. - Related Data Home Medications Medication Instructions Recorded Confirmed Albuterol Sulfate [Proair Hfa] 2 puff INHALATION RT-Q6H PRN 02/05/21 02/05/21 Ergocalciferol (Vitamin D2) 1,250 mcg PO TH 02/05/21 02/05/21 [Drisdol (50,000 Iu)] Fluticasone Propionate [Flovent 1 puff INHALATION RT-BID 02/05/21 02/05/21 Hfa 110 mcg] Levothyroxine Sodium [Synthroid] 200 mcg PO DAILY 02/05/21 02/05/21 Omeprazole 20 mg PO DAILY 02/05/21 02/05/21 Allergies Allergy/AdvReac Type Severity Reaction Status Date / Time venom-honey bee Allergy Unknown Verified 02/05/21 10:01 [bee venom (honey bee)] codeine AdvReac Nausea & Verified 02/05/21 10:01 Vomiting & Diarrhea Review of Systems ROS Statement: Those systems with pertinent positive or pertinent negative responses have been documented in the HPI. ROS Other: All systems not noted in ROS Statement are negative. Constitutional: Denies: fever Eyes: Denies: eye pain ENT: Denies: ear pain Respiratory: Denies: cough Cardiovascular: Denies: chest pain Endocrine: Denies: fatigue Gastrointestinal: Reports: as per HPI, abdominal pain. Denies: vomiting, diarrhea, constipation Genitourinary: Denies: dysuria Musculoskeletal: Denies: back pain Skin: Denies: rash Past Medical History Past Medical History: Asthma, Thyroid Disorder Additional Past Medical History / Comment(s): stomach ulcers History of Any Multi-Drug Resistant Organisms: None Reported Past Surgical History: Section, Hernia Repair Additional Past Surgical History / Comment(s): thyroidectomy Past Psychological History: No Psychological Hx Reported Smoking Status: Current every day smoker Past Alcohol Use History: None Reported Past Drug Use History: None Reported - Past Family History Father Family Medical History: No Reported History Mother Family Medical History: No Reported History General Exam Limitations: no limitations General appearance: alert, in no apparent distress Head exam: Present: normocephalic Eye exam: Present: normal appearance Neck exam: Present: normal inspection Respiratory exam: Present: normal lung sounds bilaterally Cardiovascular Exam: Present: regular rate, normal rhythm Expanded Peripheral pulses: 2+: Dorsalis Pedis (R), Dorsalis Pedis (L) GI/Abdominal exam: Present: soft, tenderness (Mild epigastric tenderness to palpation), normal bowel sounds. Absent: distended, guarding, rebound, rigid, pulsatile mass Extremities exam: Present: normal inspection Neurological exam: Present: alert Psychiatric exam: Present: normal affect, normal mood Skin exam: Present: normal color Course Vital Signs 02/05/21 02/05/21 09:33 11:07 Temperature 98.1 F Pulse Rate 92 87 Respiratory 17 18 Rate Blood Pressure 153/93 130/77 O2 Sat by Pulse 99 99 Oximetry Medical Decision Making - Medical Decision Making Patient reevaluated and is feeling better with IV Protonix. Patient updated on results and need for follow-up. Patient states she did have a recent endoscopy done. - Lab Data Result diagrams: 02/05/21 10:13 02/05/21 10:13 Lab Results 02/05/21 02/05/21 02/05/21 Range/Units 10:13 10:13 10:13 WBC 5.4 (3.8-10.6) k/uL RBC 4.85 (3.80-5.40) m/uL Hgb 12.8 (11.4-16.0) gm/dL Hct 40.1 (34.0-46.0) % MCV 82.6 (80.0-100.0) fL MCH 26.3 (25.0-35.0) pg MCHC 31.8 (31.0-37.0) g/dL RDW 16.7 H (11.5-15.5) % Plt Count 250 (150-450) k/uL MPV 10.2 Neutrophils % 51 % Lymphocytes % 35 % Monocytes % 6 % Eosinophils % 3 % Basophils % 1 % Neutrophils # 2.8 (1.3-7.7) k/uL Lymphocytes # 1.9 (1.0-4.8) k/uL Monocytes # 0.3 (0-1.0) k/uL Eosinophils # 0.2 (0-0.7) k/uL Basophils # 0.0 (0-0.2) k/uL Hypochromasia Slight Anisocytosis Slight PT 10.3 (9.0-12.0) sec INR 1.0 (<1.2) APTT 22.4 (22.0-30.0) sec Sodium 137 (137-145) mmol/L Potassium 4.4 (3.5-5.1) mmol/L Chloride 102 (98-107) mmol/L Carbon Dioxide 25 (22-30) mmol/L Anion Gap 10 mmol/L BUN 12 (7-17) mg/dL Creatinine 0.74 (0.52-1.04) mg/dL Est GFR (CKD-EPI)AfAm >90 (>60 ml/min/1.73 sqM) Est GFR (CKD-EPI)NonAf >90 (>60 ml/min/1.73 sqM) Glucose 97 (74-99) mg/dL Calcium 9.5 (8.4-10.2) mg/dL Total Bilirubin 0.5 (0.2-1.3) mg/dL AST 20 (14-36) U/L ALT 13 (4-34) U/L Alkaline Phosphatase 73 (38-126) U/L Total Protein 7.3 (6.3-8.2) g/dL Albumin 4.1 (3.5-5.0) g/dL Amylase 45 (30-110) U/L Lipase 106 (23-300) U/L Urine Color Urine Appearance (Clear) Urine pH (5.0-8.0) Ur Specific [place] (1.001-1.035) Urine Protein (Negative) Urine Glucose (UA) (Negative) Urine Ketones (Negative) Urine Blood (Negative) Urine Nitrite (Negative) Urine Bilirubin (Negative) Urine Urobilinogen (<2.0) mg/dL Ur Leukocyte Esterase (Negative) Urine RBC (0-5) /hpf Urine WBC (0-5) /hpf Ur Squamous Epith Cells (0-4) /hpf Amorphous Sediment (None) /hpf Urine Bacteria (None) /hpf Urine Mucus (None) /hpf 02/05/21 Range/Units 10:55 WBC (3.8-10.6) k/uL RBC (3.80-5.40) m/uL Hgb (11.4-16.0) gm/dL Hct (34.0-46.0) % MCV (80.0-100.0) fL MCH (25.0-35.0) pg MCHC (31.0-37.0) g/dL RDW (11.5-15.5) % Plt Count (150-450) k/uL MPV Neutrophils % % Lymphocytes % % Monocytes % % Eosinophils % % Basophils % % Neutrophils # (1.3-7.7) k/uL Lymphocytes # (1.0-4.8) k/uL Monocytes # (0-1.0) k/uL Eosinophils # (0-0.7) k/uL Basophils # (0-0.2) k/uL Hypochromasia Anisocytosis PT (9.0-12.0) sec INR (<1.2) APTT (22.0-30.0) sec Sodium (137-145) mmol/L Potassium (3.5-5.1) mmol/L Chloride (98-107) mmol/L Carbon Dioxide (22-30) mmol/L Anion Gap mmol/L BUN (7-17) mg/dL Creatinine (0.52-1.04) mg/dL Est GFR (CKD-EPI)AfAm (>60 ml/min/1.73 sqM) Est GFR (CKD-EPI)NonAf (>60 ml/min/1.73 sqM) Glucose (74-99) mg/dL Calcium (8.4-10.2) mg/dL Total Bilirubin (0.2-1.3) mg/dL AST (14-36) U/L ALT (4-34) U/L Alkaline Phosphatase (38-126) U/L Total Protein (6.3-8.2) g/dL Albumin (3.5-5.0) g/dL Amylase (30-110) U/L Lipase (23-300) U/L Urine Color Light Yellow Urine Appearance Cloudy H (Clear) Urine pH 6.5 (5.0-8.0) Ur Specific [place] 1.007 (1.001-1.035) Urine Protein Negative (Negative) Urine Glucose (UA) Negative (Negative) Urine Ketones Negative (Negative) Urine Blood Negative (Negative) Urine Nitrite Negative (Negative) Urine Bilirubin Negative (Negative) Urine Urobilinogen <2.0 (<2.0) mg/dL Ur Leukocyte Esterase Negative (Negative) Urine RBC <1 (0-5) /hpf Urine WBC 1 (0-5) /hpf Ur Squamous Epith Cells 8 H (0-4) /hpf Amorphous Sediment Moderate H (None) /hpf Urine Bacteria Rare H (None) /hpf Urine Mucus Rare H (None) /hpf - Radiology Data Radiology results: report reviewed (CT abdomen and pelvis shows no acute abnormality. Previous hernia surgery. Probable fibroids.) Disposition Clinical Impression: Abdominal pain Disposition: HOME SELF-CARE Condition: Stable Instructions (If sedation given, give patient instructions): Abdominal Pain (ED) Additional Instructions: Please follow-up with primary care physician in the next day or 2 for recheck. Please also follow-up with her desk and urologist. Return for increased pain, fever, not tolerating fluids, worsening symptoms or other concerns. Continue your omeprazole Is patient prescribed a controlled substance at d/c from ED?: No Referrals: Dano Strong Jr, [Primary Care Provider] - 1-2 days Time of Disposition: 11:53
[2021-02-05 10:29] LABS: Anisocytosis Slight; Basophils % (A) 1 %; Eosinophils # (A) 0.2 k/uL (0-0.7); Eosinophils % (A) 3 %; HCT 40.1 % (34.0-46.0); HGB 12.8 gm/dL (11.4-16.0); Hypochromasia Slight; Lymphocytes # (A) 1.9 k/uL (1.0-4.8); Lymphocytes % (A) 35 %; MCH 26.3 pg (25.0-35.0); MCHC 31.8 g/dL (31.0-37.0); MCV 82.6 fL (80.0-100.0); Mean Platelet Volume 10.2; Monocytes # (A) 0.3 k/uL (0-1.0); Monocytes % (A) 6 %; Neutrophils # (A) 2.8 k/uL (1.3-7.7); Neutrophils % (A) 51 %; Platelet Count 250 k/uL (150-450); RBC 4.85 m/uL (3.80-5.40); RDW 16.7 % (11.5-15.5); WBC 5.4 k/uL (3.8-10.6)
[2021-02-05 10:38] LABS: Partial Thromboplastin Time 22.4 sec (22.0-30.0); Prothrombin Time 10.3 sec (9.0-12.0)
[2021-02-05 10:43] LABS: ALT 13 U/L (4-34); AST 20 U/L (14-36); African American GFR (CKD) >90 (>60 ml/min/1.73 sqM); Albumin 4.1 g/dL (3.5-5.0); Alkaline Phosphatase 73 U/L (38-126); Amylase 45 U/L (30-110); Anion Gap 10 mmol/L; Blood Urea Nitrogen 12 mg/dL (7-17); Calcium 9.5 mg/dL (8.4-10.2); Carbon Dioxide 25 mmol/L (22-30); Chloride 102 mmol/L (98-107); Glucose 97 mg/dL (74-99); Lipase 106 U/L (23-300); Non-African American GFR(CKD) >90 (>60 ml/min/1.73 sqM); Potassium 4.4 mmol/L (3.5-5.1); Sodium 137 mmol/L (137-145); Total Bilirubin 0.5 mg/dL (0.2-1.3); Total Protein 7.3 g/dL (6.3-8.2)
--- NOTE | 2021-02-05 11:02 | CT ---
EXAMINATION TYPE: CT abdomen pelvis wo con CT DLP: 1853.9 mGycm, Automated exposure control for dose reduction was used. DATE OF EXAM: 02/05/2021 10:25 AM COMPARISON: None. CLINICAL INDICATION:Female, 50 years old with history of abdominal pain; PHH, Stomach pains TECHNIQUE: Standard CT of the abdomen and pelvis without IV or oral contrast. Lack of IV or oral co ntrast limits evaluation of solid and hollow organ viscera. Coronal and sagittal reformats were perfo rmed. FINDINGS: LOWER CHEST: Unremarkable ABDOMEN LIVER: Unremarkable GALLBLADDER AND BILE DUCTS: The gallbladder is surgically absent. PANCREAS: Unremarkable. SPLEEN: Unremarkable. ADRENAL GLANDS: Unremarkable. KIDNEYS AND URETERS: No evidence of hydronephrosis or renal calculus. The ureters are unremarkable. PELVIS BLADDER: Unremarkable REPRODUCTIVE: The uterus is enlarged. ABDOMEN & PELVIS STOMACH AND BOWEL: Stomach and duodenum are unremarkable. No evidence of bowel obstruction. PERITONEUM: No evidence of pneumoperitoneum or free fluid. VASCULATURE: No evidence of aortic aneurysm. MUSCULOSKELETAL: No acute osseous abnormalities LYMPH NODES: No gross evidence for lymphadenopathy. SOFT TISSUE/ABDOMINAL WALL: Ventral wall hernia repair changes with anchors identified. There remains a possible subcentimeter periumbilical fat filled hernia and persistent fat within the umbilicus. IMPRESSION: 1. No evidence for acute intra-abdominal process. 2. Post ventral abdominal wall hernia repair changes with persistent fat within subcentimeter umbilic al and periumbilical hernias. 3. Enlarged uterus likely secondary to underlying fibroids.
[2021-02-05 11:10] LABS: Amorphous Sediment,Urine Moderate /hpf; Appearance,Urine Cloudy (Clear); Bacteria,Urine Rare /hpf; Bilirubin,Urine Negative (Negative); Blood,Urine Negative (Negative); Color,Urine Light Yellow; Glucose,Urine (UA) Negative (Negative); Ketones,Urine Negative (Negative); Leukocyte Esterase,Urine Negative (Negative); Mucus,Urine Rare /hpf; Nitrite,Urine Negative (Negative); PH, Urine 6.5 (5.0-8.0); Protein,Urine Negative (Negative); RBC,Urine <1 /hpf (0-5); Specific Gravity,Urine 1.007 (1.001-1.035); Squamous Epithelial Cell,Urine 8 /hpf (0-4); Urobilinogen,Urine <2.0 mg/dL (<2.0); WBC,Urine 1 /hpf (0-5)
[2021-02-05] MEDS ORDERED: MAG HYDROX/AL HYDROX/SIMETH 30 ML, HYOSCYAMINE ELIXIR 10 ML, LIDOCAINE VISCOUS 2% 10 ML PO STA ×3 (11:53)
[2021-02-05 12:43] VITALS: BP 109/82; PULSE 80; RESP 20; TEMP 98.2
== END 2021-02-05 12:43 | disposition home or self-care (01) ==
LOC: EC 09:29
DX: R10.9 Unspecified abdominal pain (principal); J45.909 Unspecified asthma, uncomplicated; F17.200 Nicotine dependence, unspecified, uncomplicated
CPT/HCPCS: 36415; 80053; 82150; 83690; 85025; 85610; 85730; 81001; 74176; 99284; 96374; 96361 ×3; C9113

== ENCOUNTER → 2021-02-27 | Outpatient (CLI) | payer OTHER ==
--- NOTE | 2021-02-28 08:00 | MR ---
EXAMINATION TYPE: MR knee RT wo con DATE OF EXAM: 02/27/2021 COMPARISON: Outside right knee x-ray December 12, 2020 HISTORY: Right whole knee pain and swelling for a few months TECHNIQUE: Multiplanar, multisequence imaging of the right knee is performed without IV contrast. FINDINGS: MEDIAL MENISCUS: Slight medial extrusion medial meniscus on coronal images. Some increased signal is present central body. LATERAL MENISCUS: Anterior and posterior horns are intact without tear. CRUCIATE LIGAMENTS: The anterior and posterior cruciate ligaments are intact and unremarkable. COLLATERAL LIGAMENTS: The medial collateral ligament and lateral collateral ligament complex are inta ct and unremarkable. EXTENSOR MECHANISM: Visualized quadriceps and patellar tendons are intact. EFFUSION: No significant suprapatellar joint effusion. POPLITEAL CYST: No popliteal/varela cyst. TRICOMPARTMENT SPACES: Moderate tricompartment joint space loss greatest medial tibiofemoral compartm ent. Mild tricompartment spurring. CARTILAGE: Cartilaginous loss medial tibiofemoral compartment. Some cartilaginous loss superior aspec t of the posterior patellar pole. BONE MARROW SIGNAL: Small focus of increased T2 signal posterior superior patellar pole sagittal imag e 20 at site of full-thickness cartilaginous loss. Overall heterogeneity suggests red marrow reconver maru. OTHER: No additional significant abnormality is appreciated. IMPRESSION: 1. Moderate to borderline advanced tricompartment degenerative changes greatest patellofemoral and me dial tibiofemoral compartments somewhat prominent for patient's chronologic age. 2. At least intrasubstance tear possible full-thickness tear medial meniscus likely degenerative in n ature.
== END | disposition home or self-care (01) ==
LOC: RADMRIMAIN 19:45
PROVIDERS: ATTEND Orthopaedic Surgery
DX: M17.11 Unilateral primary osteoarthritis, right knee (principal)

== ENCOUNTER → 2021-03-25 | Outpatient (CLI) | payer OTHER ==
[2021-03-25 19:01] LABS: Basophils # (A) 0.04 X 10*3/uL (0.00-0.10); Basophils % (A) 0.8 %; Eosinophils # (A) 0.15 X 10*3/uL (0.04-0.35); Eosinophils % (A) 3.1 %; HCT 39.3 % (37.2-46.3); HGB 11.7 g/dL (12.0-15.0); Lymphocytes # (A) 1.75 X 10*3/uL (0.90-5.00); Lymphocytes % (A) 36.7 %; MCH 24.4 pg (27.0-32.0); MCHC 29.8 g/dL (32.0-37.0); MCV 81.9 fL (80.0-97.0); Mean Platelet Volume 12.9 fL (9.5-12.2); Monocytes % (A) 10.5 %; Neutrophils # (A) 2.32 X 10*3/uL (1.80-7.70); Neutrophils % (A) 48.7 %; Platelet Count 180 X 10*3/uL (140-440); RDW 15.1 % (11.5-14.5); WBC 4.77 X 10*3/uL (4.50-10.00)
[2021-03-25 19:05] LABS: Anion Gap 10.9 mmol/L (10.00-18.00); Carbon Dioxide 25.4 mmol/L (20.0-27.5); Potassium 4.2 mmol/L (3.5-5.5)
== END | disposition home or self-care (01) ==
LOC: LABPAT 09:52
PROVIDERS: ATTEND Orthopaedic Surgery
DX: Z01.818 Encounter for other preprocedural examination (principal); M23.91 Unspecified internal derangement of right knee
CPT/HCPCS: 36415; 80051; 85025; 93005

== ENCOUNTER 2021-08-18 17:19 | Emergency (ER) | payer OTHER ==
--- NOTE | 2021-08-18 18:24 | ED ---
Abdominal Pain HPI - General Stated Complaint: Stomach Ulcer/SOB Time Seen by Provider: 08/18/21 18:22 Source: RN notes reviewed - History of Present Illness Initial Comments: This is a pleasant 50-year-old female presents to emergency department complaining of abdominal pain. Patient also has sensation of shortness of breath. Patient does have history of peptic ulcer.Patient states she takes omeprazole for peptic ulcer but this is not working she is having burning which started today. This may be related to shortness breath and wheezing. Patient still smoking cigarettes. Patient does have inhalers at home. Patient's cough is dry. Nonproductive. No fever. Patient denies any vomiting. No hematochezia or melena. No pain into the chest. Patient is vaccinated against COVID-19 in fact had COVID-19 at the beginning of the year. No headache, no fever or chills, no changes in vision or hearing, no sore throat or difficulty with speech, no neck pain, no chest pain, no nausea or vomiting, n o changes in urination or bowel movements, no numbness or tingling, no extremity pain, no skin rashes or lesions. MD Complaint: abdominal pain - Related Data Home Medications Medication Instructions Recorded Confirmed Albuterol Sulfate [Proair Hfa] 2 puff INHALATION RT-Q6H PRN 02/05/21 04/05/21 Ergocalciferol (Vitamin D2) 1,250 mcg PO TH 02/05/21 04/05/21 [Drisdol (50,000 Iu)] Levothyroxine Sodium [Synthroid] 200 mcg PO DAILY 02/05/21 04/05/21 Omeprazole 40 mg PO 1700 02/05/21 04/05/21 Fluticasone Propion/Salmeterol 1 puff PO RT-BID 03/01/21 04/05/21 [Advair 250-50 Diskus] Albuterol Sulfate [Ventolin HFA] 1 - 2 puff INHALATION Q6H PRN 04/05/21 04/05/21 Previous Rx's Medication Instructions Recorded HYDROcodone/APAP 5-325MG [Dante 1 tab PO Q6HR PRN #21 tab 04/07/21 5-325] Montelukast [Singulair] 10 mg PO HS #30 tab 08/19/21 Sucralfate [Carafate] 1 gm PO TID 10 Days #300 ml 08/19/21 Allergies Allergy/AdvReac Type Severity Reaction Status Date / Time venom-honey bee Allergy Dyspnea Verified 08/18/21 18:28 [bee venom (honey bee)] codeine AdvReac Nausea & Verified 08/18/21 18:28 Vomiting & Diarrhea Review of Systems ROS Statement: Those systems with pertinent positive or pertinent negative responses have been documented in the HPI. ROS Other: All systems not noted in ROS Statement are negative. Past Medical History Past Medical History: Asthma, GERD/Reflux, Osteoarthritis (OA), Thyroid Disorder Additional Past Medical History / Comment(s): stomach ulcers, BORDERLINE H YPERTENSION History of Any Multi-Drug Resistant Organisms: None Reported Past Surgical History: Section, Hernia Repair Additional Past Surgical History / Comment(s): thyroidectomy Past Anesthesia/Blood Transfusion Reactions: No Reported Reaction Smoking Status: Current every day smoker - Past Family History Father Family Medical History: No Reported History Mother Family Medical History: No Reported History General Exam - General Exam Comments Initial Comments: Nontoxic appearing female in mild distress. General appearance: alert, in distress Head exam: Present: atraumatic, normocephalic, normal inspection Eye exam: Present: normal appearance, PERRL, EOMI. Absent: scleral icterus, conjunctival injection, periorbital swelling ENT exam: Present: normal exam, normal oropharynx, mucous membranes moist, normal external ear exam. Absent: mucous membranes dry Neck exam: Present: normal inspection, full ROM. Absent: tenderness, meningismus, lymphadenopathy Respiratory exam: Present: normal lung sounds bilaterally, accessory muscle use (Minimal). Absent: respiratory distress, wheezes, rales, rhonchi, stridor, chest wall tenderness Cardiovascular Exam: Present: regular rate, normal rhythm, normal heart sounds. Absent: systolic murmur, diastolic murmur, rubs, gallop, clicks GI/Abdominal exam: Present: soft, normal bowel sounds. Absent: distended, tenderness, guarding, rebound, rigid Extremities exam: Present: normal inspection, full ROM, normal capillary refill. Absent: tenderness, pedal edema, joint swelling, calf tenderness Back exam: Present: normal inspection Neurological exam: Present: alert, oriented X3, CN II-XII intact Psychiatric exam: Present: normal affect, normal mood Skin exam: Present: warm, dry, intact, normal color. Absent: rash Course Vital Signs 08/18/21 18:24 Temperature 98.7 F Pulse Rate 101 H Respiratory 18 Rate Blood Pressure 139/75 O2 Sat by Pulse 95 Oximetry - Reevaluation(s) Reevaluation #1: 08/19/21 02:20 Medical record is reviewed Symptoms are improved here in the emergency department, patient states she is still having some burning in the epigastrium Patient is informed of results and questions answered Patient in no distress Reevaluation #2: 08/19/21 03:21 Patient was improved after GI cocktail. Going to try Carafate. Patient also was found to have some mild wheezing with forced expiration. I'm going to try the patient on Singulair. She can take this in addition to her regular medications. Patient counseled for greater than 3 minutes on smoking cessation Procedures - Smoking Cessation Time Spent Discussing Smoking Cessation w/Patient (Minutes): 3 Patient Acknowledges Need for Cessation: Yes Medical Decision Making - Medical Decision Making Patient's symptomology appears to be consistent with acute bronchitis with a sthma exacerbation. Patient's d-dimer was negative. Discussed all findings with the patient. Patient was improved after GI cocktail. Patient may need an endoscopic evaluation by gastroenterology. We'll provide follow-up. Other findings discussed. Patient's cardiac testing was negative. Patient apparently has had some unexplained shortness of breath going on for quite some time. She states that her physician cannot figure it out either. Patient has no adventitious lung sounds. Going to outpatient follow-up with her regular physician as well as a cherry dipper. Patient was told to return to the ER for any signs or symptoms worsen. Told to return immediately if any other problems arise. All questions answered. Treatment plan discussed. Patient in agreement Every effort has been made to ensure accuracy of this dictation. However, due to the limitations of electronic medical records and dictation devices, errors in charting still occur. [employer] Dr. Saldana - Lab Data Result diagrams: 08/18/21 23:51 08/18/21 23:51 Lab Results 08/18/21 08/18/21 08/18/21 Range/Units 18:33 18:33 23:51 WBC 7.1 (3.8-10.6) k/uL RBC 5.11 (3.80-5.40) m/uL Hgb 12.4 (11.4-16.0) gm/dL Hct 39.5 (34.0-46.0) % MCV 77.3 L (80.0-100.0) fL MCH 24.2 L (25.0-35.0) pg MCHC 31.3 (31.0-37.0) g/dL RDW 16.9 H (11.5-15.5) % Plt Count 246 (150-450) k/uL MPV 10.1 Neutrophils % 51 % Lymphocytes % 34 % Monocytes % 8 % Eosinophils % 3 % Basophils % 2 % Neutrophils # 3.6 (1.3-7.7) k/uL Lymphocytes # 2.4 (1.0-4.8) k/uL Monocytes # 0.6 (0-1.0) k/uL Eosinophils # 0.2 (0-0.7) k/uL Basophils # 0.2 (0-0.2) k/uL Hypochromasia Moderate Anisocytosis Slight Microcytosis Slight D-Dimer (<0.60) mg/L FEU Sodium (137-145) mmol/L Potassium (3.5-5.1) mmol/L Chloride (98-107) mmol/L Carbon Dioxide (22-30) mmol/L Anion Gap mmol/L BUN (7-17) mg/dL Creatinine (0.52-1.04) mg/dL Est GFR (CKD-EPI)AfAm (>60 ml/min/1.73 sqM) Est GFR (CKD-EPI)NonAf (>60 ml/min/1.73 sqM) Glucose (74-99) mg/dL Calcium (8.4-10.2) mg/dL Total Bilirubin (0.2-1.3) mg/dL AST (14-36) U/L ALT (4-34) U/L Alkaline Phosphatase (38-126) U/L Troponin I (0.000-0.034) ng/mL NT-Pro-B Natriuret Pep pg/mL Total Protein (6.3-8.2) g/dL Albumin (3.5-5.0) g/dL Lipase (23-300) U/L Coronavirus (PCR) Not Detected (Not Detectd) Influenza Type A RNA Not Detected (Not Detectd) Influenza Type B (PCR) Not Detected (Not Detectd) 06/24/22 06/24/22 06/24/22 Range/Units 23:51 23:51 23:51 WBC (3.8-10.6) k/uL RBC (3.80-5.40) m/uL Hgb (11.4-16.0) gm/dL Hct (34.0-46.0) % MCV (80.0-100.0) fL MCH (25.0-35.0) pg MCHC (31.0-37.0) g/dL RDW (11.5-15.5) % Plt Count (150-450) k/uL MPV Neutrophils % % Lymphocytes % % Monocytes % % Eosinophils % % Basophils % % Neutrophils # (1.3-7.7) k/uL Lymphocytes # (1.0-4.8) k/uL Monocytes # (0-1.0) k/uL Eosinophils # (0-0.7) k/uL Basophils # (0-0.2) k/uL Hypochromasia Anisocytosis Microcytosis D-Dimer (<0.60) mg/L FEU Sodium 137 (137-145) mmol/L Potassium 4.2 (3.5-5.1) mmol/L Chloride 101 (98-107) mmol/L Carbon Dioxide 26 (22-30) mmol/L Anion Gap 10 mmol/L BUN 12 (7-17) mg/dL Creatinine 0.82 (0.52-1.04) mg/dL Est GFR (CKD-EPI)AfAm >90 (>60 ml/min/1.73 sqM) Est GFR (CKD-EPI)NonAf 84 (>60 ml/min/1.73 sqM) Glucose 110 H (74-99) mg/dL Calcium 9.4 (8.4-10.2) mg/dL Total Bilirubin 0.5 (0.2-1.3) mg/dL AST 25 (14-36) U/L ALT 17 (4-34) U/L Alkaline Phosphatase 84 (38-126) U/L Troponin I <0.012 (0.000-0.034) ng/mL NT-Pro-B Natriuret Pep 31 pg/mL Total Protein 7.7 (6.3-8.2) g/dL Albumin 4.5 (3.5-5.0) g/dL Lipase 113 (23-300) U/L Coronavirus (PCR) (Not Detectd) Influenza Type A RNA (Not Detectd) Influenza Type B (PCR) (Not Detectd) 08/19/21 Range/Units 02:44 WBC (3.8-10.6) k/uL RBC (3.80-5.40) m/uL Hgb (11.4-16.0) gm/dL Hct (34.0-46.0) % MCV (80.0-100.0) fL MCH (25.0-35.0) pg MCHC (31.0-37.0) g/dL RDW (11.5-15.5) % Plt Count (150-450) k/uL MPV Neutrophils % % Lymphocytes % % Monocytes % % Eosinophils % % Basophils % % Neutrophils # (1.3-7.7) k/uL Lymphocytes # (1.0-4.8) k/uL Monocytes # (0-1.0) k/uL Eosinophils # (0-0.7) k/uL Basophils # (0-0.2) k/uL Hypochromasia Anisocytosis Microcytosis D-Dimer 0.44 (<0.60) mg/L FEU Sodium (137-145) mmol/L Potassium (3.5-5.1) mmol/L Chloride (98-107) mmol/L Carbon Dioxide (22-30) mmol/L Anion Gap mmol/L BUN (7-17) mg/dL Creatinine (0.52-1.04) mg/dL Est GFR (CKD-EPI)AfAm (>60 ml/min/1.73 sqM) Est GFR (CKD-EPI)NonAf (>60 ml/min/1.73 sqM) Glucose (74-99) mg/dL Calcium (8.4-10.2) mg/dL Total Bilirubin (0.2-1.3) mg/dL AST (14-36) U/L ALT (4-34) U/L Alkaline Phosphatase (38-126) U/L Troponin I (0.000-0.034) ng/mL NT-Pro-B Natriuret Pep pg/mL Total Protein (6.3-8.2) g/dL Albumin (3.5-5.0) g/dL Lipase (23-300) U/L Coronavirus (PCR) (Not Detectd) Influenza Type A RNA (Not Detectd) Influenza Type B (PCR) (Not Detectd) - EKG Data -: EKG Interpreted by Me EKG Comments: EKG done at 1839 ED attending physician reveals sinus rhythm with a rate of 86. Normal intervals. Normal axis. No evidence of acute ST or T-wave changes. Disposition Clinical Impression: Gastritis without bleeding, Cigarette smoker, Bronchospasm Disposition: HOME SELF-CARE Condition: Good Instructions (If sedation given, give patient instructions): Asthma (ED), Gastritis (ED), How to Stop Smoking (ED) Is patient prescribed a controlled substance at d/c from ED?: No Referrals: Dano Strong Jr, DO [Primary Care Provider] - 08/21/21 Doreen Parisi MD [STAFF PHYSICIAN] - As Soon As Possible Time of Disposition: 03:23
[2021-08-18 18:27] VITALS: BP 139/75; PULSE 101; RESP 18; TEMP 98.7
--- NOTE | 2021-08-18 19:27 | XR ---
EXAMINATION TYPE: XR abdomen acute w cxr DATE OF EXAM: 08/18/2021 COMPARISON: NONE HISTORY: Epigastric pain TECHNIQUE: 4 view FINDINGS: Heart and mediastinum are normal. Lungs are clear of infiltrate bowel gas pattern is normal . No sign of intestinal obstruction or pneumoperitoneum. Fecal pattern is normal. There are clips fro m cholecystectomy. No calcifications seen over the kidneys. IMPRESSION: Nonacute abdomen. Normal chest.
[2021-08-19 00:09] LABS: Anisocytosis Slight; Basophils # (A) 0.2 k/uL (0-0.2); Basophils % (A) 2 %; Eosinophils # (A) 0.2 k/uL (0-0.7); Eosinophils % (A) 3 %; HCT 39.5 % (34.0-46.0); HGB 12.4 gm/dL (11.4-16.0); Hypochromasia Moderate; Lymphocytes # (A) 2.4 k/uL (1.0-4.8); Lymphocytes % (A) 34 %; MCH 24.2 pg (25.0-35.0); MCHC 31.3 g/dL (31.0-37.0); MCV 77.3 fL (80.0-100.0); Mean Platelet Volume 10.1; Microcytosis Slight; Monocytes # (A) 0.6 k/uL (0-1.0); Monocytes % (A) 8 %; Neutrophils # (A) 3.6 k/uL (1.3-7.7); Neutrophils % (A) 51 %; Platelet Count 246 k/uL (150-450); RBC 5.11 m/uL (3.80-5.40); RDW 16.9 % (11.5-15.5); WBC 7.1 k/uL (3.8-10.6)
[2021-08-19 00:24] LABS: ALT 17 U/L (4-34); AST 25 U/L (14-36); African American GFR (CKD) >90 (>60 ml/min/1.73 sqM); Albumin 4.5 g/dL (3.5-5.0); Alkaline Phosphatase 84 U/L (38-126); Anion Gap 10 mmol/L; Blood Urea Nitrogen 12 mg/dL (7-17); Calcium 9.4 mg/dL (8.4-10.2); Carbon Dioxide 26 mmol/L (22-30); Chloride 101 mmol/L (98-107); Glucose 110 mg/dL (74-99); Lipase 113 U/L (23-300); Non-African American GFR(CKD) 84 (>60 ml/min/1.73 sqM); Potassium 4.2 mmol/L (3.5-5.1); Sodium 137 mmol/L (137-145); Total Bilirubin 0.5 mg/dL (0.2-1.3); Total Protein 7.7 g/dL (6.3-8.2)
[2021-08-19] MEDS ORDERED: MAG HYDROX/AL HYDROX/SIMETH 30 ML, HYOSCYAMINE ELIXIR 10 ML, LIDOCAINE VISCOUS 2% 10 ML PO STA ×3 (02:15)
[2021-08-19] MEDS ORDERED: FAMOTIDINE 20 MG/2 ML VIAL IV STA (02:21)
== END 2021-08-19 03:38 | disposition home or self-care (01) ==
LOC: EC 17:19
DX: K29.70 Gastritis, unspecified, without bleeding (principal); J45.909 Unspecified asthma, uncomplicated; K21.9 Gastro-esophageal reflux disease without esophagitis; E07.9 Disorder of thyroid, unspecified; Z91.030 Bee allergy status; Z88.5 Allergy status to narcotic agent; Z79.890 Hormone replacement therapy; Z79.899 Other long term (current) drug therapy; Z79.51 Long term (current) use of inhaled steroids; Z20.822 Contact with and (suspected) exposure to COVID-19
CPT/HCPCS: 36415; 74022; 80053; 83690; 83880; 84484; 85025; 85379; 87502; 87635; 93005; 99285